=== PATIENT | female | born 1970 | race Hispanic/Latino ===

== ENCOUNTER → 2018-10-03 | Day surgery (SDC) | payer MEDICARE, OTHER ==
[2018-10-02 14:11] LABS: BASOPHILS # (AUTO) 0.1 (0.0-0.1); BASOPHILS % 0.6 % (0.0-1.0); EOSINOPHILS # (AUTO) 0.2 (0.0-0.4); EOSINOPHILS % 1.2 % (0.0-6.0); HEMATOCRIT 37.8 % (34.2-44.1); HEMOGLOBIN 12.2 g/dL (12.0-16.0); LYMPHOCYTES # (AUTO) 3.4 (1.0-3.2); LYMPHOCYTES % 18.6 % (18.0-39.1); MEAN CORPUSCULAR HEMOGLOBIN 31.8 pg (28-32); MEAN CORPUSCULAR HGB CONC 32.3 g/dL (31-35); MEAN CORPUSCULAR VOLUME 98.4 fL (81-99); MONOCYTES # (AUTO) 1.3 (0.2-0.8); MONOCYTES % 6.8 % (4.4-11.3); NEUTROPHILS # (AUTO) 13.4 (2.1-6.9); NEUTROPHILS % 72.3 % (38.7-80.0); PLATELET COUNT 280 x10e3/uL (140-360); RED BLOOD COUNT 3.84 x10e6/uL (3.6-5.1); RED CELL DISTRIBUTION WIDTH 14.7 % (11.7-14.4)
[~2018-10-03] MED LIST: ALENDRONATE SOD70 MG; ASPIRIN81 MG; BUSPIRONE HCL5 MG PO; DEPAKOTE500 MG; FENTANYL CITRATE/PF 100MCG/2 ML INJ ONE; GABAPENTIN100 MG; HYDROXYZINE HCL25 MG PO; LIDOCAINE HCL 2% LOCAL INJ 5 ML SDV VIAL INJ ONE; LORAZEPAM1 MG PO; METOPROLOL SUCC25 MG; MIDAZOLAM HCL 2 MG/2 ML VIAL ONE; PANTOPRAZOLE SO40 MG PO; PROPOFOL IV EMULSION 10 MG/ML 20 ML VIAL ONE; SUCRALFATE1 GM PO
--- OUTSIDE RECORDS SUMMARY | 2018-10-03 06:50 | XMS REPORT | Continuity of Care Document ---
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 Stop date: 04/19/17 7:00:00 CDTNotes: WASTE: F/P - Black; E - [place] Trash Bin No Longer Active 03/20/2017 [facility] Albuterol 0.833 MG/ML / Ipratropium [place] 0.167 MG/ML Inhalant Solution [DuoNeb] 3 ml, Route: NEB, Drug Form: SOLN, Dosing Weight 39.261, kg, RQ2H, for 2 doses, Start date: 03/20/17 15:00:00 CDT, Duration: 2 doses or times, Stop date: 03/20/17 17:00:00 CDTNotes: (Same as: Duoneb) Inactive 03/20/2017 [facility] Levaquin 750 mg, 1 tab, Route: PO, Drug form: TAB, [id number], Dosing Weight 39.261, kg, Start date: 03/20/17 14:00:00 CDT, Duration: 7 day, Stop date: 03/26/17 14:00:00 CDTNotes: Do not give w/antacids, dairy pdt & minerals Take 1 hr before or 2 hr after dairy products Inactive 03/20/2017 [facility] Coreg 3.125 mg, 1 tab, Route: PO, Drug form: TAB, Q12H, Dosing Weight 39.261, kg, Start date: 03/20/17 13:48:00 CDT, Duration: 30 day, Stop date: 04/19/17 9:00:00 CDTNotes: Give with food. (Same As: Coreg) No Longer Active 03/20/2017 [facility] Levaquin 750 mg, Route: PO, Drug form: TAB, [id number], Dosing Weight 39.261, kg, Start date: 03/20/17 13:37:00 CDT, Duration: 30 day, Stop date: 04/18/17 13:37:00 CDT Inactive 03/20/2017 [facility] Acetylcysteine 100 MG/ML Inhalant Solution 200 mg, 2 ml, Route: NEB, Drug Form: SOLN, Dosing Weight 39.261, kg, RQ4H, Start date: 03/20/17 11:00:00 CDT, Duration: 30 day, Stop date: 04/19/17 7:00:00 CDTNotes: WASTE: F/P - Black; E - [employer] Trash Bin Inactive 03/20/2017 [facility] Albuterol 0.833 MG/ML / Ipratropium [place] 0.167 MG/ML Inhalant Solution [DuoNeb] 3 ml, Route: NEB, Drug Form: SOLN, Dosing Weight 39.261, kg, RQ2H, Start date: 03/20/17 9:00:00 CDT, Duration: 30 day, Stop date: 04/19/17 7:00:00 CDTNotes: (Same as: Duoneb) Inactive 03/20/2017 [facility] Miralax 17 gm, 1 pkt, Route: PO, Drug form: PWDR, Daily, Dosing Weight 39.261, kg, Start date: 03/20/17 9:00:00 CDT, Duration: 30 day, Stop date: 04/18/17 9:00:00 CDTNotes: Dissolve in 8 oz of water or juice. (Same as: Miralax) No Longer Active 03/20/2017 [facility] remove patch 1 patch, Route: TOP, Drug form: ERFILM, Q24H, Start date: 03/19/17 18:00:00 CDT, Duration: 30 day, Stop date: 04/17/17 18:00:00 CDTNotes: Remove old patch before application of new patch. WASTE: F/P - P Waste Black; E - P Waste Black No Longer Active 03/19/2017 [facility] Clonidine Hydrochloride 0.1 MG Oral Tablet 0.1 mg, 1 tab, Route: PO, Drug form: TAB, Q8H, Dosing Weight 39.261, kg, Start date: 03/19/17 14:00:00 CDT, Duration: 30 day, Stop date: 04/18/17 8:00:00 CDTNotes: (Same As: Catapres) No Longer Active 03/19/2017 [facility] Albuterol 0.833 MG/ML / Ipratropium [place] 0.167 MG/ML Inhalant Solution [DuoNeb] 3 ml, Route: NEB, Drug Form: SOLN, Dosing Weight 39.261, kg, RQ4H, Start date: 03/19/17 11:00:00 CDT, Duration: 30 day, Stop date: 04/18/17 7:00:00 CDTNotes: (Same as: Duoneb) No Longer Active 03/19/2017 [facility] Albuterol 1 MG/ML Inhalant Solution 2.49 mg, 3 mL, Route: INHALATION, Drug form: SOLN, Q2H, Dosing Weight 39.261, kg, PRN Shortness of breath, Priority: NOW, Start date: 03/19/17 10:36:00 CDT, Duration: 30 day, Stop date: 04/18/17 10:35:00 CDTNotes: SEE RT DOCUMENTATION (Same as: Proventil) No Longer Active 03/19/2017 [facility] Acetaminophen 325 MG / Hydrocodone Bitartrate 10 MG Oral Tablet [[place] 10/325] 1 tab, Route: PO, Drug Form: TAB, Dosing Weight 39.261, kg, Q6H, PRN Pain Score 4-6, Start date: 03/19/17 9:35:00 CDT, Duration: 30 day, Stop date: 04/18/17 9:34:00 CDTNotes: Do not exceed 4gm/day of acetaminophen. (Same as: [place] 325/10) No Longer Active 03/19/2017 [facility] azithromycin 500 mg, 2 tab, Route: PO, Drug form: TAB, Daily, Dosing Weight 39.261, kg, Start date: 03/19/17 9:00:00 CDT, Duration: 2 doses or times, Stop date: 03/20/17 9:00:00 CDTNotes: Take 1 hour before or 2 hours after meals. (Same As: Zithromax) No Longer Active 03/19/2017 [facility] Tessalon Perles 100 mg, 1 cap, Route: PO, Drug form: CAP, TID, Dosing Weight 39.261, kg, Start date: 03/19/17 9:00:00 CDT, Duration: 30 day, Stop date: 04/17/17 17:00:00 CDTNotes: (Same As: Ely Guerrero) "Do Not Crush" No Longer Active 03/19/2017 [facility] pneumococcal capsular polysaccharide type 1 vaccine / pneumococcal capsular polysaccharide type 10A vaccine / pneumococcal capsular polysaccharide type 11A vaccine / pneumococcal capsular polysaccharide type 12F vaccine / pneumococcal capsular polysacchar 0.5 mL, Route: IM, Daily, Start date: 03/19/17 9:00:00 CDT, Duration: 1 doses or times, Stop date: 03/19/17 9:00:00 CDT No Longer Active 03/19/2017 [facility] sodium phosphate + sodium chloride 0.9% INJ 250 mL 15 mmol, 5 mL, Route: IV, ONCE, Start date: 03/19/17 8:00:00 CDT, Stop date: 03/19/17 8:00:00 CDTNotes: (Same as: Na Phosphate, Na PO4) Inactive 03/19/2017 [facility] potassium phosphate 15 mmol, Route: IVPB, ONCE, Dosing Weight 39.261, kg, Priority: NOW, Start date: 03/19/17 7:07:00 CDT, Stop date: 03/19/17 7:07:00 CDT Inactive 03/19/2017 [facility] Calcium Gluconate 2,000 mg, 20 mL, Route: IVPB, ONCE, Dosing Weight 39.261, kg, Start date: 03/19/17 6:37:00 CDT, Stop date: 03/19/17 6:37:00 CDTNotes: WASTE: F/P - Sink; E - [place] Trash Bin Inactive 03/19/2017 [facility] heparin sodium, porcine 2500 UNT/ML Injectable Solution 5,000 unit, 1 mL, Route: SUB-Q, Drug form: INJ, Q12H, Dosing Weight 39.261, kg, Start date: 03/18/17 21:00:00 CDT, Duration: 30 day, Stop date: 04/17/17 9:00:00 CDTNotes: porcine heparin No Longer Active 03/19/2017 [facility] heparin 5,000 unit, 1 mL, Route: SUB-Q, Drug form: INJ, Q12H, Dosing Weight 36.364, kg, Start date: 03/18/17 21:00:00 CDT, Duration: 30 day, Stop date: 04/17/17 9:00:00 CDTNotes: porcine heparin Inactive 03/19/2017 [facility] Seroquel 300 mg, Route: PO, Drug form: TAB, Bedtime, Dosing Weight 39.261, kg, Start date: 03/18/17 21:00:00 CDT, Duration: 30 day, Stop date: 04/16/17 21:00:00 CDT Inactive 03/19/2017 [facility] Divalproex Sodium 500 MG Enteric Coated Tablet [Depakote] 500 mg, 1 tab, Route: PO, Drug form: ECTAB, BID, Dosing Weight 39.261, kg, Start date: 03/18/17 21:00:00 CDT, Duration: 30 day, Stop date: 04/17/17 17:00:00 CDT Inactive 03/19/2017 [facility] Klonopin 0.5 mg, Route: PO, Drug form: TAB, Daily, Dosing Weight 39.261, kg, Start date: 03/18/17 21:00:00 CDT, Duration: 30 day, Stop date: 04/17/17 9:00:00 CDT Inactive 03/19/2017 [facility] SEROquel 100 mg, 1 tab, Route: PO, Drug form: TAB, Bedtime, Start date: 03/18/17 21:00:00 CDT, Duration: 30 day, Stop date: 04/16/17 21:00:00 CDTNotes: (Same as: SEROquel) No Longer Active 03/19/2017 [facility] Acetaminophen 325 MG / Hydrocodone Bitartrate 10 MG Oral Tablet [[place] 10/325] 1 tab, Route: PO, Drug Form: TAB, Dosing Weight 39.261, kg, ONCE, Start date: 03/18/17 17:51:00 CDT, Stop date: 03/18/17 17:51:00 CDTNotes: Do not exceed 4gm/day of acetaminophen. (Same as: [place] 325/10) Inactive 03/18/2017 [facility] Nicotine 7 mg, 1 patch, Route: TOP, Drug form: ERFILM, Q24H, Dosing Weight 39.261, kg, Priority: NOW, Start date: 03/18/17 17:42:00 CDT, Duration: 30 day, Stop date: 04/16/17 18:00:00 CDTNotes: (Same as: Habitro l) "Remove old patch before application of new patch" WASTE: F/P - P Waste Black; E - P Waste Black No Longer Active 03/18/2017 [facility] Symbicort 160/4.5 inhalation aerosol with adapter 2 inhalation, Route: INHALATION, Drug Form: AERO/A, Dosing Weight 39.261, kg, RBID, NOW, Start date: 03/18/17 17:42:00 CDT, Duration: 30 day, Stop date: 04/17/17 8:00:00 CDTNotes: (Same as: Symbicort) WASTE: Aerosol - Return to Pharmacy No Longer Active 03/18/2017 [facility] potassium phosphate + sodium chloride 0.9% INJ 250 mL 15 mmol, 5 mL, Route: IVPB, ONCE, Dosing Weight 39.261, kg, Priority: NOW, Start date: 03/18/17 17:38:00 CDT, Stop date: 03/18/17 17:38:00 CDTNotes: (Same as: K Phosphate.) 1 mMol phoshate has 1.47 mEq potassium Infuse over 4 hours Inactive 03/18/2017 [facility] Sodium Chloride 0.154 MEQ/ML Injectable Solution 1,000 mL, 1,000 ml/hr, Infuse Over: 1 hr, Route: IV, 1,000, Drug form: INJ, ONCE, Priority: STAT, Dosing Weight 39.261 kg, Start date: 03/18/17 17:36:00 CDT, Duration: 1 doses or times, Stop date: 03/18/17 17:36:00 CDT Inactive 03/18/2017 [facility] Docusate Sodium 100 MG Oral Capsule [Colace] 100 mg, 1 cap, Route: PO, Drug form: CAP, BID, Dosing Weight 39.261, kg, Start date: 03/18/17 17:00:00 CDT, Duration: 30 day, Stop date: 04/17/17 9:00:00 CDTNotes: (Same as: Colace) (Do Not Crush) No Longer Active 03/18/2017 [facility] Depakote 250 mg oral enteric coated tablet 250 mg, 2 tab, Route: PO, Drug form: ECTAB, BID, Start date: 03/18/17 17:00:00 CDT, Stop date: 04/17/17 9:00:00 CDTNotes: (Same as: Depakote Delayed Release) Do not confuse with the extended-release tablet. Delayed absorption, entereic coated tablet. Do not crush No Longer Active 03/18/2017 [facility] KlonoPIN 0.5 mg, 1 tab, Route: PO, Drug form: TAB, Q8H, PRN Anxiety, Start date: 03/18/17 15:24:00 CDT, Duration: 30 day, Stop date: 04/17/17 15:23:00 CDTNotes: (Same As: KlonoPIN) No Longer Active 03/18/2017 [facility] Iohexol 100 mL, Route: IVP, Drug Form: SOLN, Dosing Weight 39.261, kg, ONCALL, STAT, Start date: 03/18/17 15:21:00 CDT, Duration: 1 doses or times, Dose=2.2ml/kg, Max [id number] -- "To be infused by Radiology Staff ONLY" Inactive 03/18/2017 [facility] clonazePAM 0.25 mg, 0.5 tab, Route: PO, Drug form: TAB, Q8H, PRN Anxiety, Start date: 03/18/17 15:16:00 CDT, Duration: 30 day, Stop date: 04/17/17 15:15:00 CDTNotes: 0.25 mg=1/2 x 0.5 mg TAB (Same As: KlonoPIN) Inactive 03/18/2017 [facility] levocetirizine 5 mg oral tablet 5 mg=1 tab, PO, QPM, 0 Refill(s) Active 03/18/2017 [facility] Alendronic acid 70 MG Oral Tablet 70 mg=1 tab, PO, qWeek, 0 Refill(s) Active 03/18/2017 [facility] quetiapine 100 MG Oral Tablet [Seroquel] 100 mg=1 tab, PO, Bedtime, 0 Refill(s) Active 03/18/2017 [facility] Tramadol 50 mg, PO, Q8H, PRN Pain, # 20 tab, 0 Refill(s) No Longer Active 03/18/2017 [facility] Clonidine Hydrochloride 0.1 MG Oral Tablet 0.1 mg=1 tab, PO, TID, 0 Refill(s) Active 03/18/2017 [facility] 24 HR Divalproex Sodium 250 MG Extended Release Tablet 250 mg=1 tab, PO, BID, 0 Refill(s) Active 03/18/2017 [facility] clonazePAM 0.5 mg oral tablet 0.5 mg=1 tab, PO, Q8H, 0 Refill(s) Active 03/18/2017 [facility] Prednisone 40 mg, 2 tab, Route: PO, Drug form: TAB, Daily, Dosing Weight 39.261, kg, Start date: 03/18/17 13:44:00 CDT, Duration: 30 day, Stop date: 04/17/17 9:00:00 CDTNotes: Take with food. No Longer Active 03/18/2017 [facility] Sodium Chloride 0.154 MEQ/ML Injectable Solution 1,000 mL, 1,000 ml/hr, Infuse Over: 1 hr, Route: IV, 1,000, Drug form: INJ, ONCE, Priority: STAT, Dosing Weight 39.261 kg, Start date: 03/18/17 13:34:00 CDT, Duration: 1 doses or times, Stop date: 03/18/17 13:34:00 CDT Inactive 03/18/2017 [facility] Tramadol 50 mg, 1 tab, Route: PO, Drug form: TAB, Q6H, Dosing Weight 39.261, kg, PRN Pain Score 4-6, Start date: 03/18/17 13:33:00 CDT, Duration: 30 day, Stop date: 04/17/17 13:32:00 CDTNotes: Not to exceed 4 00mg/day. (Same As: Ultram) No Longer Active 03/18/2017 [facility] Acetaminophen 325 MG / Hydrocodone Bitartrate 5 MG Oral Tablet [[place] 5/325] 1 tab, Route: PO, Dosing Weight 36.364, kg, Q6H, Start date: 03/18/17 12:00:00 CDT, Duration: 30 day, Stop date: 04/17/17 6:00:00 CDT Inactive 03/18/2017 [facility] Albuterol 0.833 MG/ML / Ipratropium [place] 0.167 MG/ML Inhalant Solution [DuoNeb] 3 ml, Route: NEB, Drug Form: SOLN, Dosing Weight 39.261, kg, RQ6H, Start date: 03/18/17 11:57:00 CDT, Duration: 30 day, Stop date: 04/17/17 14:00:00 CDTNotes: (Same as: Duoneb) No Longer Active 03/18/2017 [facility] Clonidine Hydrochloride 0.1 MG Oral Tablet 0.1 mg, Route: PO, Drug form: TAB, ONCE, Dosing Weight 39.261, kg, Start date: 03/18/17 11:55:00 CDT, Stop date: 03/18/17 11:55:00 CDT Inactive 03/18/2017 [facility] Clonidine Hydrochloride 0.3 MG Oral Tablet 0.3 mg, 1 tab, Route: PO, Drug form: TAB, Daily, Dosing Weight 39.261, kg, Start date: 03/18/17 11:54:00 CDT, Duration: 30 day, Stop date: 04/17/17 9:00:00 CDT Inactive 03/18/2017 [facility] potassium chloride 20 mEq oral tablet, extended release 40 mEq, 2 tab, Route: PO, Drug form: ERTAB, ONCE, Dosing Weight 39.261, kg, Start date: 03/18/17 11:51:00 CDT, Stop date: 03/18/17 11:51:00 CDTNotes: (Same as: K-Dur 20) "Do Not Crush" With food and full glass of water Inactive 03/18/2017 [facility] Sodium Chloride 0.154 MEQ/ML Injectable Solution 1,000 mL, 1,000 ml/hr, Infuse Over: 1 hr, Route: IV, 1,000, Drug form: INJ, ONCE, Priority: STAT, Dosing Weight 39.261 kg, Start date: 03/18/17 11:44:00 CDT, Duration: 1 doses or times, Stop date: 03/18/17 11:44:00 CDT Inactive 03/18/2017 [facility] Lactated Ringers 1,000 mL 1,000 mL, Rate: 100 ml/hr, Infuse over: 10 hr, Route: IV, Dosing Weight 39.261 kg, Total Volume: 1,000, Start date: 03/18/17 11:43:00 CDT, Duration: 30 day, Stop date: 04/17/17 11:42:00 CDT No Longer Active 03/18/2017 [facility] Divalproex Sodium 500 MG Enteric Coated Tablet [Depakote] 500 mg=1 tab, PO, BID, 0 Refill(s) Inactive 03/18/2017 [facility] Albuterol 1 MG/ML Inhalant Solution 2.5 mg, INHALATION, Q6H, PRN wheezing, 0 Refill(s) Active 03/18/2017 [facility] 120 ACTUAT Albuterol 0.1 MG/ACTUAT / Ipratropium [place] 0.02 MG/ACTUAT Metered Dose Inhaler [Combivent 20/100] 1 puff, INHALATION, TID, 0 Refill(s) Active 03/18/2017 [facility] Acetaminophen 325 MG / Hydrocodone Bitartrate 7.5 MG Oral Tablet [[place] 7.5/325] 1 tab, PO, BID, 0 Refill(s) No Longer Active 03/18/2017 [facility] Clonazepam 0.5 MG Oral Tablet [Klonopin] 0.5 mg=1 tab, PO, Daily, 0 Refill(s) Inactive 03/18/2017 [facility] quetiapine 300 MG Oral Tablet [Seroquel] 300 mg=1 tab, PO, Bedtime, 0 Refill(s) Inactive 03/18/2017 [facility] Clonidine Hydrochloride 0.3 MG Oral Tablet 0.3 mg=1 tab, PO, Daily, # 60 tab, 1 Refill(s) Inactive 03/18/2017 [facility] Acetaminophen 325 MG / Hydrocodone Bitartrate 7.5 MG Oral Tablet [[place] 7.5/325] 1 tab, Route: PO, Drug Form: TAB, Dosing Weight 36.364, kg, ONCE, STAT, Start date: 03/18/17 9:34:00 CDT, Stop date: 03/18/17 9:34:00 CDTNotes: Same as [place] 325-7.5mg Do not exceed 4gm/day of acetaminophen. Inactive 03/18/2017 [facility] Albuterol 0.83 MG/ML Inhalant Solution 2.49 mg, 3 mL, Route: NEB, Drug form: SOLN, ONCE, Dosing Weight 36.364, kg, Priority: STAT, Start date: 03/18/17 9:03:00 CDT, Stop date: 03/18/17 9:03:00 CDTNotes: SEE RT DOCUMENTATION (Same as: Proventil) Inactive 03/18/2017 [facility] azithromycin 500 mg oral tablet 1,000 mg, Route: PO, Drug form: TAB, ONCE, Dosing Weight 36.364, kg, Start date: 03/18/17 9:02:00 CDT, Stop date: 03/18/17 9:02:00 CDT Inactive 03/18/2017 [facility] Albuterol 0.833 MG/ML / Ipratropium [place] 0.167 MG/ML Inhalant Solution [DuoNeb] 3 ml, Route: NEB, Drug Form: SOLN, Dosing Weight 36.364, kg, PRN, PRN Respiratory Protocol, Start date: 03/18/17 7:36:00 CDT, Duration: 30 day, Stop date: 04/17/17 7:35:00 CDT Inactive 03/18/2017 [facility] Allergies, Adverse Reactions, Alerts Substance Category Reaction Severity Reaction type Status Date Reported Comments Source Immunizations Immunization Date Given Site Status Last Updated Comments Source pneumococcal 23-valent vaccine 10/14/2017 Right deltoid completed [facility] influenza virus vaccine, inactivated 10/14/2017 Left deltoid completed [facility] tetanus-diphtheria toxoids 06/22/2013 Right Deltoid completed [facility] Results Order Name Results Value Reference Range Date Interpretation Comments Source CHEM PANEL eGFR 103 mL/min/1.73m2 12/07/2017 Result Comment: The eGFR is calculated using the CKD-EPI formula. In most young, healthy individuals the eGFR will be >90 mL/min/1.73m2. The eGFR declines with age. An eGFR of 60-89 may be normal in some populations, particularly the elderly, for whom the CKD-EPI formula has not been extensively validated. Use of the eGFR is not recommended in the following populations: Individuals with unstable creatinine concentrations, including patients and those with serious co-morbid conditions. Patients with extremes in muscle mass or diet. The data above are obtained from the National Kidney Disease Education Program (NKDEP) which additionally recommends that when the eGFR is used in patients with extremes of body mass index for purposes of drug dosing, the eGFR should be multiplied by the estimated BMI. [facility] CHEM PANEL Glucose Lvl 95 mg/dL 70 - 99 12/07/2017 [facility] CHEM PANEL BUN 7 mg/dL 7 - 22 12/07/2017 [facility] CHEM PANEL Sodium Lvl 145 meq/L 135 - 145 12/07/2017 [facility] CHEM PANEL Creatinine Lvl 0.69 mg/dL 0.50 - 1.40 12/07/2017 [facility] CHEM PANEL Potassium Lvl 4.4 meq/L 3.5 - 5.1 12/07/2017 [facility] CHEM PANEL CO2 24 meq/L 24 - 32 12/07/2017 [facility] CHEM PANEL Chloride Lvl 111 meq/L 95 - 109 12/07/2017 [facility] CHEM PANEL Calcium Lvl 8.6 mg/dL 8.5 - 10.5 12/07/2017 [facility] CHEM PANEL AGAP 14.4 meq/L 10.0 - 20.0 12/07/2017 [facility] HEMATOLOGY Basophils # 0.1 K/CMM 0.0 - 0.2 12/07/2017 [facility] HEMATOLOGY Eosinophils # 0.1 K/CMM 0.0 - 0.5 12/07/2017 [facility] HEMATOLOGY Monocytes # 0.7 K/CMM 0.0 - 0.8 12/07/2017 [facility] HEMATOLOGY Lymphocytes # 1.9 K/CMM 1.0 - 5.5 12/07/2017 [facility] HEMATOLOGY Segs-Bands # 6.6 K/CMM 1.5 - 8.1 12/07/2017 [facility] HEMATOLOGY Segs 70.4 % 45.0 - 75.0 12/07/2017 [facility] HEMATOLOGY Basophils 0.8 % 0.0 - 1.0 12/07/2017 [facility] HEMATOLOGY Monocytes 7.1 % 2.0 - 12.0 12/07/2017 [facility] HEMATOLOGY Eosinophils 1.6 % 0.0 - 4.0 12/07/2017 [facility] Lymphocytes 20.1 % 20.0 - 40.0 12/07/2017 [facility] RDW 16.8 % 11.5 - 14.5 12/07/2017 [facility] Platelet 277 K/CMM 133 - 450 12/07/2017 [facility] MPV 8.6 fL 7.4 - 10.4 12/07/2017 [facility] MCH 30.9 pg 27.0 - 31.0 12/07/2017 [facility] MCV 94.3 fL 80.0 - 98.0 12/07/2017 [facility] MCHC 32.7 g/dL 32.0 - 36.0 12/07/2017 [facility] Hct 26.8 % 36.0 - 48.0 12/07/2017 [facility] Hgb 8.8 g/dL 12.0 - 16.0 12/07/2017 [facility] RBC 2.85 M/CMM 4.20 - 5.40 12/07/2017 [facility] WBC 9.3 K/CMM 3.7 - 10.4 12/07/2017 [facility] CHEM PANEL eGFR 113 mL/min/1.73m2 12/05/2017 Result Comment: The eGFR is calculated using the CKD-EPI formula. In most young, healthy individuals the eGFR will be >90 mL/min/1.73m2. The eGFR declines with age. An eGFR of 60-89 may be normal in some populations, particularly the elderly, for whom the CKD-EPI formula has not been extensively validated. Use of the eGFR is not recommended in the following populations: Individuals with unstable creatinine concentrations, including patients and those with serious co-morbid conditions. Patients with extremes in muscle mass or diet. The data above are obtained from the National Kidney Disease Education Program (NKDEP) which additionally recommends that when the eGFR is used in patients with extremes of body mass index for purposes of drug dosing, the eGFR should be multiplied by the estimated BMI. [facility] CHEM PANEL Chloride Lvl 105 meq/L 95 - 109 12/05/2017 [facility] CHEM PANEL Potassium Lvl 3.8 meq/L 3.5 - 5.1 12/05/2017 [facility] CHEM PANEL CO2 28 meq/L 24 - 32 12/05/2017 [facility] CHEM PANEL Calcium Lvl 7.8 mg/dL 8.5 - 10.5 12/05/2017 [facility] CHEM PANEL Sodium Lvl 142 meq/L 135 - 145 12/05/2017 [facility] CHEM PANEL Glucose Lvl 88 mg/dL 70 - 99 12/05/2017 [facility] CHEM PANEL BUN 8 mg/dL 7 - 22 12/05/2017 [facility] CHEM PANEL Creatinine Lvl 0.53 mg/dL 0.50 - 1.40 12/05/2017 [facility] CHEM PANEL AGAP 12.8 meq/L 10.0 - 20.0 12/05/2017 [facility] HEMATOLOGY MPV 8.5 fL 7.4 - 10.4 12/05/2017 [facility] HEMATOLOGY RDW 16.6 % 11.5 - 14.5 12/05/2017 [facility] HEMATOLOGY Platelet 249 K/CMM 133 - 450 12/05/2017 [facility] MCHC 32.1 g/dL 32.0 - 36.0 12/05/2017 [facility] HEMATOLOGY MCV 93.4 fL 80.0 - 98.0 12/05/2017 [facility] HEMATOLOGY WBC 13.2 K/CMM 3.7 - 10.4 12/05/2017 [facility] HEMATOLOGY Hgb 8.7 g/dL 12.0 - 16.0 12/05/2017 [facility] Hct 27.0 % 36.0 - 48.0 12/05/2017 [facility] MCH 30.0 pg 27.0 - 31.0 12/05/2017 [facility] RBC 2.89 M/CMM 4.20 - 5.40 12/05/2017 [facility] HEMATOLOGY Eosinophils 1.9 % 0.0 - 4.0 12/05/2017 [facility] HEMATOLOGY Lymphocytes # 2.2 K/CMM 1.0 - 5.5 12/05/2017 [facility] HEMATOLOGY Monocytes # 1.0 K/CMM 0.0 - 0.8 12/05/2017 [facility] HEMATOLOGY Eosinophils # 0.3 K/CMM 0.0 - 0.5 12/05/2017 [facility] HEMATOLOGY Basophils # 0.1 K/CMM 0.0 - 0.2 12/05/2017 [facility] HEMATOLOGY Segs-Bands # 9.8 K/CMM 1.5 - 8.1 12/05/2017 [facility] HEMATOLOGY Segs 73.8 % 45.0 - 75.0 12/05/2017 [facility] HEMATOLOGY Monocytes 7.3 % 2.0 - 12.0 12/05/2017 [facility] HEMATOLOGY Basophils 0.6 % 0.0 - 1.0 12/05/2017 [facility] HEMATOLOGY Lymphocytes 16.4 % 20.0 - 40.0 12/05/2017 [facility] BACTERIAL - SEROLOGY Strep pneumoniae Ag Negative (12/04/17 11:45 PM) Negative 12/05/2017 [facility] BACTERIAL - SEROLOGY Source Strep Urine *NA* (12/04/17 11:45 PM) 12/05/2017 [facility] MOLECULAR DIAGNOSTIC Adenovirus PCR Negative (12/04/17 11:45 PM) Negative 12/05/2017 [facility] MOLECULAR DIAGNOSTIC Source Adenovirus PCR [employer] EXPER[employer]ENT[employer] Swab (12/04/17 11:45 PM) 12/05/2017 [facility] DIAGNOSTIC Parainfluenza 3 PCR Negative (12/04/17 11:45 PM) Negative 12/05/2017 [facility] Source Parainfluenza Virus PCR [employer] EXPERIM[employer] Swab (12/04/17 11:45 PM) 12/05/2017 [facility] DIAGNOSTIC Parainfluenza 2 PCR Negative (12/04/17 11:45 PM) Negative 12/05/2017 [facility] DIAGNOSTIC Parainfluenza 1 PCR Negative (12/04/17 11:45 PM) Negative 12/05/2017 [facility] DIAGNOSTIC RSV PCR Negative (12/04/17 11:45 PM) Negative 12/05/2017 [facility] DIAGNOSTIC Influenza A PCR Negative (12/04/17 11:45 PM) Negative 12/05/2017 [facility] Source Respiratory Panel PCR [employer] Swab (12/04/17 11:45 PM) 12/05/2017 [facility] Influenza B PCR Negative (12/04/17 11:45 PM) Negative 12/05/2017 [facility] URINE AND STOOL UA Urobilinogen <=1.0 mg/dL 0.1 - 1.0 12/04/2017 [facility] URINE AND STOOL UA pH 6.0 5.0 - 8.0 12/04/2017 [facility] URINE AND STOOL UA Spec Grav 1.017 <=1.030 12/04/2017 [facility] URINE AND STOOL UA Protein 30 mg/dL Negative mg/dL 12/04/2017 [facility] URINE AND STOOL UA Bili Negative *NA* (12/04/17 2:14 PM) Negative 12/04/2017 [facility] URINE AND STOOL UA Ketones Negative mg/dL Negative mg/dL 12/04/2017 [facility] URINE AND STOOL UA Glucose Negative mg/dL Negative mg/dL 12/04/2017 [facility] URINE AND STOOL UA WBC 8 /HPF 0 - 5 12/04/2017 [facility] URINE AND STOOL UA Sq Epi Many /LPF Few /LPF 12/04/2017 [facility] URINE AND STOOL UA RBC 10 /HPF 0 - 2 12/04/2017 [facility] URINE AND STOOL UA Blood Negative (12/04/17 2:14 PM) Negative 12/04/2017 [facility] URINE AND STOOL UA Leuk Est Small *ABN* (12/04/17 2:14 PM) Negative 12/04/2017 [facility] URINE AND STOOL UA Nitrite Negative (12/04/17 2:14 PM) Negative 12/04/2017 [facility] URINE AND STOOL UA Trans Epi 12 /LPF <=0 /LPF 12/04/2017 [facility] URINE AND STOOL UA Bacteria Occasional /HPF None Seen /HPF 12/04/2017 [facility] URINE AND STOOL UA Hyal Cast 3 /LPF 0 - 2 12/04/2017 [facility] URINE AND STOOL UA Color Yellow *NA* (12/04/17 2:14 PM) Yellow 12/04/2017 [facility] URINE AND STOOL UA Turbidity Marked *ABN* (12/04/17 2:14 PM) Clear 12/04/2017 [facility] VIRAL - SEROLOGY Influ B Negative (12/04/17 2:14 PM) Negative 12/04/2017 [facility] VIRAL - SEROLOGY Influ A Negative (12/04/17 2:14 PM) Negative 12/04/2017 [facility] CARDIAC ENZYMES Troponin-I null 0.00 - 0.40 12/04/2017 [facility] CARDIAC ENZYMES Total CK 32 unit/L 12 - 191 12/04/2017 [facility] CHEM PANEL Lactic Acid Lvl 1.7 mMol/L 0.5 - 2.2 12/04/2017 [facility] CHEM PANEL eGFR 108 mL/min/1.73m2 12/04/2017 Result Comment: The eGFR is calculated using the CKD-EPI formula. In most young, healthy individuals the eGFR will be >90 mL/min/1.73m2. The eGFR declines with age. An eGFR of 60-89 may be normal in some populations, particularly the elderly, for whom the CKD-EPI formula has not been extensively validated. Use of the eGFR is not recommended in the following populations: Individuals with unstable creatinine concentrations, including patients and those with serious co-morbid conditions. Patients with extremes in muscle mass or diet. The data above are obtained from the National Kidney Disease Education Program (NKDEP) which additionally recommends that when the eGFR is used in patients with extremes of body mass index for purposes of drug dosing, the eGFR should be multiplied by the estimated BMI. [facility] CHEM PANEL Bili Total 0.4 mg/dL 0.2 - 1.3 12/04/2017 [facility] CHEM PANEL Alk Phos 182 unit/L 39 - 136 12/04/2017 [facility] CHEM PANEL AST 7 unit/L 0 - 37 12/04/2017 [facility] CHEM PANEL ALT 20 unit/L 0 - 65 12/04/2017 [facility] CHEM PANEL Total Protein 7.8 g/dL 6.4 - 8.4 12/04/2017 [facility] CHEM PANEL Chloride Lvl 101 meq/L 95 - 109 12/04/2017 [facility] CHEM PANEL CO2 25 meq/L 24 - 32 12/04/2017 [facility] CHEM PANEL Calcium Lvl 8.6 mg/dL 8.5 - 10.5 12/04/2017 [facility] CHEM PANEL Albumin Lvl 2.9 g/dL 3.5 - 5.0 12/04/2017 [facility] CHEM PANEL Creatinine Lvl 0.61 mg/dL 0.50 - 1.40 12/04/2017 [facility] CHEM PANEL Glucose Lvl 104 mg/dL 70 - 99 12/04/2017 [facility] CHEM PANEL BUN 8 mg/dL 7 - 22 12/04/2017 [facility] CHEM PANEL Sodium Lvl 136 meq/L 135 - 145 12/04/2017 [facility] CHEM PANEL Potassium Lvl 3.6 meq/L 3.5 - 5.1 12/04/2017 [facility] CHEM PANEL AGAP 13.6 meq/L 10.0 - 20.0 12/04/2017 [facility] CHEM PANEL Globulin 4.9 g/dL 2.7 - 4.2 12/04/2017 [facility] CHEM PANEL A/G Ratio 0.6 0.7 - 1.6 12/04/2017 [facility] CHEM PANEL B/C Ratio 13 6 - 25 12/04/2017 [facility] CHEM PANEL Procalcitonin Lvl 16.37 ng/mL 0.00 - 0.10 12/04/2017 Result Comment: Critical Result(s) called to Jeremiah Robison 12/04/2017 16:33 by genesis. Read back OK. Notified Shannon Robison at 12/04/2017 16:33,genesis that this is a corrected report. [facility] ENDOCRINOLOGY S Preg Negative *NA* (12/04/17 2:08 PM) Negative 12/04/2017 [facility] HEMATOLOGY Monocytes # 1.5 K/CMM 0.0 - 0.8 12/04/2017 [facility] HEMATOLOGY Basophils # 0.1 K/CMM 0.0 - 0.2 12/04/2017 [facility] HEMATOLOGY Segs-Bands # 25.1 K/CMM 1.5 - 8.1 12/04/2017 [facility] HEMATOLOGY Lymphocytes # 1.2 K/CMM 1.0 - 5.5 12/04/2017 [facility] HEMATOLOGY Eosinophils 0.1 % 0.0 - 4.0 12/04/2017 [facility] HEMATOLOGY Basophils 0.4 % 0.0 - 1.0 12/04/2017 [facility] RBC Morph Normal (12/04/17 2:08 PM) 12/04/2017 [facility] Segs 90.0 % 45.0 - 75.0 12/04/2017 [facility] Plt Morph Normal (12/04/17 2:08 PM) 12/04/2017 [facility] Lymphocytes 4.2 % 20.0 - 40.0 12/04/2017 [facility] Monocytes 5.3 % 2.0 - 12.0 12/04/2017 [facility] INR 0.98 0.85 - 1.17 12/04/2017 [facility] PT 13.0 s 12.0 - 14.7 12/04/2017 [facility] MPV 8.4 fL 7.4 - 10.4 12/04/2017 [facility] RDW 16.7 % 11.5 - 14.5 12/04/2017 [facility] Platelet 359 K/CMM 133 - 450 12/04/2017 [facility] MCH 30.3 pg 27.0 - 31.0 12/04/2017 [facility] MCHC 32.2 g/dL 32.0 - 36.0 12/04/2017 [facility] Hct 30.5 % 36.0 - 48.0 12/04/2017 [facility] MCV 94.0 fL 80.0 - 98.0 12/04/2017 [facility] RBC 3.25 M/CMM 4.20 - 5.40 12/04/2017 [facility] WBC 27.9 K/CMM 3.7 - 10.4 12/04/2017 [facility] Hgb 9.8 g/dL 12.0 - 16.0 12/04/2017 [facility] PTT 33.6 s 22.9 - 35.8 12/04/2017 [facility] Chest 1view DX Chest 1view DX Clinical Indication: - Undifferentiated Sepsis; Comparison: 10/15/2017 FINDINGS: AP chest radiographs shows hyperinflated lung volumes with small bilateral pleural effusions; right greater than left. There is no focal infiltrate or pneumothorax. The heart size and pulmonary vasculature are normal. The trachea is midline. There are no clinically significant osseous abnormalities noted. IMPRESSION: 1. Small bilateral pleural effusion with the right being greater than the left. There is no focal infiltrate. 2. Stable hyperinflated lung duran . SL: [id number] 12/04/2017 - - Read by: Eladio Chung MD Dictated Date/time: 12/04/17 14:20 Electronically Signed by: Eladio Chung MD 12/04/17 14:21 FINAL REPORT [facility] MCH 32.8 pg 27.0 - 31.0 10/15/2017 [facility] MCHC 33.8 g/dL 32.0 - 36.0 10/15/2017 [facility] Platelet 254 K/CMM 133 - 450 10/15/2017 [facility] MPV 8.8 fL 7.4 - 10.4 10/15/2017 [facility] RDW 15.1 % 11.5 - 14.5 10/15/2017 [facility] MCV 97.1 fL 80.0 - 98.0 10/15/2017 [facility] Hct 32.9 % 36.0 - 48.0 10/15/2017 [facility] RBC 3.38 M/CMM 4.20 - 5.40 10/15/2017 [facility] Hgb 11.1 g/dL 12.0 - 16.0 10/15/2017 [facility] WBC 13.6 K/CMM 3.7 - 10.4 10/15/2017 [facility] Chest 1view DX Chest 1view DX Clinical Indication: - SOB, cough; Comparison: 10/13/2017 FINDINGS: AP chest radiographs shows hyperinflated lung volumes are small bilateral pleural effusions. There is no evidence of any focal infiltrate or pneumothorax. The heart size and pulmonary vasculature are normal. The trachea is midline. There are no clinically significant osseous abnormalities noted. IMPRESSION: 1. Hyperinflated lung duran with small bilateral pleural effusions. There is no evidence of any focal infiltrate. SL: [id number] 10/15/2017 - - Read by: Eladio Chung MD Dictated Date/time: 10/15/17 09:49 Electronically Signed by: Eladio Chung MD 10/15/17 09:50 FINAL REPORT [facility] CHEM PANEL eGFR 107 mL/min/1.73m2 10/14/2017 Result Comment: The eGFR is calculated using the CKD-EPI formula. In most young, healthy individuals the eGFR will be >90 mL/min/1.73m2. The eGFR declines with age. An eGFR of 60-89 may be normal in some populations, particularly the elderly, for whom the CKD-EPI formula has not been extensively validated. Use of the eGFR is not recommended in the following populations: Individuals with unstable creatinine concentrations, including patients and those with serious co-morbid conditions. Patients with extremes in muscle mass or diet. The data above are obtained from the National Kidney Disease Education Program (NKDEP) which additionally recommends that when the eGFR is used in patients with extremes of body mass index for purposes of drug dosing, the eGFR should be multiplied by the estimated BMI. [facility] CHEM PANEL Alk Phos 79 unit/L 39 - 136 10/14/2017 [facility] CHEM PANEL Bili Total 0.3 mg/dL 0.2 - 1.3 10/14/2017 [facility] CHEM PANEL CO2 29 meq/L 24 - 32 10/14/2017 [facility] CHEM PANEL Total Protein 6.7 g/dL 6.4 - 8.4 10/14/2017 [facility] CHEM PANEL Calcium Lvl 7.8 mg/dL 8.5 - 10.5 10/14/2017 [facility] CHEM PANEL Chloride Lvl 99 meq/L 95 - 109 10/14/2017 [facility] CHEM PANEL AST 7 unit/L 0 - 37 10/14/2017 [facility] CHEM PANEL ALT 9 unit/L 0 - 65 10/14/2017 [facility] CHEM PANEL Albumin Lvl 2.8 g/dL 3.5 - 5.0 10/14/2017 [facility] CHEM PANEL Potassium Lvl 4.0 meq/L 3.5 - 5.1 10/14/2017 [facility] CHEM PANEL Sodium Lvl 137 meq/L 135 - 145 10/14/2017 [facility] CHEM PANEL Glucose Lvl 79 mg/dL 70 - 99 10/14/2017 [facility] CHEM PANEL Creatinine Lvl 0.61 mg/dL 0.50 - 1.40 10/14/2017 [facility] CHEM PANEL BUN 11 mg/dL 7 - 22 10/14/2017 [facility] CHEM PANEL Globulin 3.9 g/dL 2.7 - 4.2 10/14/2017 [facility] CHEM PANEL A/G Ratio 0.7 0.7 - 1.6 10/14/2017 [facility] CHEM PANEL B/C Ratio 18 6 - 25 10/14/2017 [facility] CHEM PANEL AGAP 13.0 meq/L 10.0 - 20.0 10/14/2017 [facility] HEMATOLOGY MPV 9.0 fL 7.4 - 10.4 10/14/2017 [facility] MCH 32.5 pg 27.0 - 31.0 10/14/2017 [facility] HEMATOLOGY MCV 96.9 fL 80.0 - 98.0 10/14/2017 [facility] HEMATOLOGY Platelet 321 K/CMM 133 - 450 10/14/2017 [facility] HEMATOLOGY RDW 14.7 % 11.5 - 14.5 10/14/2017 [facility] HEMATOLOGY MCHC 33.6 g/dL 32.0 - 36.0 10/14/2017 [facility] HEMATOLOGY WBC 25.0 K/CMM 3.7 - 10.4 10/14/2017 [facility] HEMATOLOGY Hct 36.1 % 36.0 - 48.0 10/14/2017 [facility] HEMATOLOGY Hgb 12.1 g/dL 12.0 - 16.0 10/14/2017 [facility] HEMATOLOGY RBC 3.72 M/CMM 4.20 - 5.40 10/14/2017 [facility] HEMATOLOGY Eosinophils # 0.1 K/CMM 0.0 - 0.5 10/14/2017 [facility] HEMATOLOGY Basophils # 0.1 K/CMM 0.0 - 0.2 10/14/2017 [facility] HEMATOLOGY Lymphocytes # 1.8 K/CMM 1.0 - 5.5 10/14/2017 [facility] HEMATOLOGY Monocytes # 1.4 K/CMM 0.0 - 0.8 10/14/2017 [facility] HEMATOLOGY Segs-Bands # 21.5 K/CMM 1.5 - 8.1 10/14/2017 [facility] HEMATOLOGY Basophils 0.5 % 0.0 - 1.0 10/14/2017 [facility] HEMATOLOGY Eosinophils 0.3 % 0.0 - 4.0 10/14/2017 [facility] HEMATOLOGY Monocytes 5.8 % 2.0 - 12.0 10/14/2017 [facility] HEMATOLOGY Lymphocytes 7.4 % 20.0 - 40.0 10/14/2017 [facility] HEMATOLOGY Segs 86.0 % 45.0 - 75.0 10/14/2017 [facility] CHEM PANEL Lactic Acid Lvl 1.1 mMol/L 0.5 - 2.2 10/14/2017 [facility] RAPID Grp A Strep Scr Negative (10/13/17 8:14 PM) Negative 10/14/2017 [facility] URINE AND STOOL UA Color Ltyellow 10/14/2017 [facility] URINE AND STOOL UA Urobilinogen <=1.0 mg/dL 0.1 - 1.0 10/14/2017 [facility] URINE AND STOOL UA Renal Epi 11 /LPF <=0 /LPF 10/14/2017 [facility] URINE AND STOOL UA WBC null 0 - 5 10/14/2017 [facility] URINE AND STOOL UA RBC 2 /HPF 0 - 2 10/14/2017 [facility] URINE AND STOOL UA Sq Epi Few /LPF Few /LPF 10/14/2017 [facility] URINE AND STOOL UA Leuk Est Negative (10/13/17 6:20 PM) Negative 10/14/2017 [facility] URINE AND STOOL UA Nitrite Negative (10/13/17 6:20 PM) Negative 10/14/2017 [facility] URINE AND STOOL UA Ketones Negative mg/dL Negative mg/dL 10/14/2017 [facility] URINE AND STOOL UA Glucose Negative mg/dL Negative mg/dL 10/14/2017 [facility] URINE AND STOOL UA Blood Large *ABN* (10/13/17 6:20 PM) Negative 10/14/2017 [facility] URINE AND STOOL UA Bili Negative *NA* (10/13/17 6:20 PM) Negative 10/14/2017 [facility] URINE AND STOOL UA pH 8.0 5.0 - 8.0 10/14/2017 [facility] URINE AND STOOL UA Protein Negative mg/dL Negative mg/dL 10/14/2017 [facility] URINE AND STOOL UA Spec Grav 1.012 <=1.030 10/14/2017 [facility] URINE AND STOOL UA Turbidity Clear (10/13/17 6:20 PM) Clear 10/14/2017 [facility] URINE CHEM U Preg Negative (10/13/17 6:20 PM) Negative 10/14/2017 [facility] CARDIAC ENZYMES CK MB Index 1.6 0.0 - 2.5 10/13/2017 [facility] CARDIAC ENZYMES Total CK 62 unit/L 12 - 191 10/13/2017 [facility] CARDIAC ENZYMES CK MB 1.0 ng/mL 0.5 - 3.6 10/13/2017 [facility] CARDIAC ENZYMES Troponin-I null 0.00 - 0.40 10/13/2017 [facility] CHEM PANEL Amylase Lvl 17 unit/L 25 - 115 10/13/2017 [facility] CHEM PANEL Lipase Lvl 56 unit/L 73 - 393 10/13/2017 [facility] CHEM PANEL eGFR 108 mL/min/1.73m2 10/13/2017 Result Comment: The eGFR is calculated using the CKD-EPI formula. In most young, healthy individuals the eGFR will be >90 mL/min/1.73m2. The eGFR declines with age. An eGFR of 60-89 may be normal in some populations, particularly the elderly, for whom the CKD-EPI formula has not been extensively validated. Use of the eGFR is not recommended in the following populations: Individuals with unstable creatinine concentrations, including patients and those with serious co-morbid conditions. Patients with extremes in muscle mass or diet. The data above are obtained from the National Kidney Disease Education Program (NKDEP) which additionally recommends that when the eGFR is used in patients with extremes of body mass index for purposes of drug dosing, the eGFR should be multiplied by the estimated BMI. [facility] CHEM PANEL A/G Ratio 0.7 0.7 - 1.6 10/13/2017 [facility] CHEM PANEL Potassium Lvl 4.3 meq/L 3.5 - 5.1 10/13/2017 [facility] CHEM PANEL CO2 26 meq/L 24 - 32 10/13/2017 [facility] CHEM PANEL Chloride Lvl 98 meq/L 95 - 109 10/13/2017 [facility] CHEM PANEL Bili Total 0.3 mg/dL 0.2 - 1.3 10/13/2017 [facility] CHEM PANEL AST 10 unit/L 0 - 37 10/13/2017 [facility] CHEM PANEL Alk Phos 87 unit/L 39 - 136 10/13/2017 [facility] CHEM PANEL Globulin 4.3 g/dL 2.7 - 4.2 10/13/2017 [facility] CHEM PANEL AGAP 12.3 meq/L 10.0 - 20.0 10/13/2017 [facility] CHEM PANEL B/C Ratio 15 6 - 25 10/13/2017 [facility] CHEM PANEL ALT 14 unit/L 0 - 65 10/13/2017 [facility] CHEM PANEL Total Protein 7.5 g/dL 6.4 - 8.4 10/13/2017 [facility] CHEM PANEL Albumin Lvl 3.2 g/dL 3.5 - 5.0 10/13/2017 [facility] CHEM PANEL Calcium Lvl 9.1 mg/dL 8.5 - 10.5 10/13/2017 [facility] CHEM PANEL Sodium Lvl 132 meq/L 135 - 145 10/13/2017 [facility] CHEM PANEL BUN 9 mg/dL 7 - 22 10/13/2017 [facility] CHEM PANEL Creatinine Lvl 0.60 mg/dL 0.50 - 1.40 10/13/2017 [facility] CHEM PANEL Glucose Lvl 84 mg/dL 70 - 99 10/13/2017 [facility] HEMATOLOGY Eosinophils # 0.2 K/CMM 0.0 - 0.5 10/13/2017 [facility] HEMATOLOGY Basophils # 0.1 K/CMM 0.0 - 0.2 10/13/2017 [facility] HEMATOLOGY Segs 87.7 % 45.0 - 75.0 10/13/2017 [facility] HEMATOLOGY Monocytes 5.4 % 2.0 - 12.0 10/13/2017 [facility] HEMATOLOGY Lymphocytes 6.1 % 20.0 - 40.0 10/13/2017 [facility] HEMATOLOGY Lymphocytes # 1.7 K/CMM 1.0 - 5.5 10/13/2017 [facility] HEMATOLOGY Monocytes # 1.5 K/CMM 0.0 - 0.8 10/13/2017 [facility] HEMATOLOGY Segs-Bands # 24.5 K/CMM 1.5 - 8.1 10/13/2017 [facility] HEMATOLOGY Basophils 0.2 % 0.0 - 1.0 10/13/2017 [facility] HEMATOLOGY Eosinophils 0.6 % 0.0 - 4.0 10/13/2017 [facility] HEMATOLOGY MCH 31.0 pg 27.0 - 31.0 10/13/2017 [facility] HEMATOLOGY MCHC 32.0 g/dL 32.0 - 36.0 10/13/2017 [facility] HEMATOLOGY Platelet 285 K/CMM 133 - 450 10/13/2017 [facility] RDW 14.8 % 11.5 - 14.5 10/13/2017 [facility] MPV 10.0 fL 7.4 - 10.4 10/13/2017 [facility] WBC 27.9 K/CMM 3.7 - 10.4 10/13/2017 [facility] RBC 4.16 M/CMM 4.20 - 5.40 10/13/2017 [facility] Hct 40.3 % 36.0 - 48.0 10/13/2017 [facility] Hgb 12.9 g/dL 12.0 - 16.0 10/13/2017 [facility] MCV 96.8 fL 80.0 - 98.0 10/13/2017 [facility] Abdomen RUQ US Abdomen RUQ US Patient Name: ISAIAH PHILLIPS : 1970; Age: 47 years y/o Female MR: [id number] Study: Abdomen RUQ US 10/13/2017 9:24 PM [employer] Ordering Physician: Andrade Funes MD Clinical Indication: - ruq abdominal pain. Comparison: None TECHNIQUE: Grayscale and limited color sonographic evaluation of the right upper quadrant abdomen was performed with standard technique. FINDINGS: LIVER: The visualized liver shows normal contour, size, and morphology with normal parenchymal echo texture. BILE DUCTS: The common bile duct measures about 4.0 mm. GALLBLADDER: There are no gallstones, gallbladder sludge, pericholecystic fluid or wall thickening. PANCREAS: The visualized pancreas appears unremarkable. KIDNEY: The right kidney measures 10.4 cm x 4.4 cm x 4.8 cm. IMPRESSION: 1. No definite gallstones. SL: [id number] 10/13/2017 - - Read by: Raffy Brady MD Dictated Date/time: 10/13/17 22:40 Electronically Signed by: Raffy Brady MD 10/13/17 22:41 FINAL REPORT [facility] ED Abdomen/Pelvis IV contrast only CT ED Abdomen/Pelvis IV contrast only CT Clinical Indication: Abdominal pain, nausea/vomiting. Comparison: 03/18/2017 TECHNIQUE: Sequential trans-axial images were obtained with a multi-detector helical CT after administration of iodinated contrast. Coronal and sagittal reconstructions were obtained. 100 mL of Omnipaque contrast material was used for the exam. No oral contrast material was used for the exam. CT Radiation Dose DLP 488 mGy-cm FINDINGS: CHEST BASE: Scattered areas of mild subsegmental/dependent atelectasis. No focal infiltrate. No effusion or pneumothorax. Heart size normal. No pericardial effusion. LIVER: Size within normal limits. Normal contours. Enhancement pattern within normal limits. GALLBLADDER: No radiopaque gallstones. No pericholecystic fluid PANCREAS: Normal enhancement pattern. No surrounding inflammation. SPLEEN: Normal size. No obvious lesions. ADRENAL GLANDS: Normal contour bilaterally. No detected lesions. KIDNEYS/COLLECTING SYSTEMS: Right kidney: Normal size and contour. No abnormal enhancement pattern. Subcentimeter hypodensities, too small to further characterize. No calcified stones. Right ureter: No hydronephrosis or obstructing calcified stone. Distal ureter suboptimally characterized, but no calcifications noted along the expected course of the ureter. Left kidney: Normal size and contour. No abnormal enhancement pattern. Subcentimeter hypodensities, too small to further characterize. No calcified stones. Left ureter: No hydronephrosis or obstructing calcified stone. Distal ureter suboptimally characterized, but no calcifications noted along the expected course of the ureter. Bladder: Decompressed.. BOWEL: Limited assessment without oral contrast. Stomach: Poorly assessed secondary to its decompressed state. Suspected small sliding hiatal hernia.. Small bowel: No obstructive pattern. No suspected inflammation. Appendix: Visualized portions noninflamed. Large bowel: Within normal limits. Moderate amount of stool and gas in the colon. PELVIC ORGANS: Uterus appears normal in size and contour. Ovaries not well characterized. No large volume adnexal or retrouterine fluid. PERITONEUM/RETROPERITONEUM: No organized fluid collection. No free air. No pathologically enlarged lymph nodes are seen in the abdomen, retroperitoneum, or pelvis. Mildly atherosclerotic aorta without areas of anuerysm. MUSCULOSKELETAL: No acute fracture or dislocation. Broad-based disc bulge at L5-S1. No lytic or blastic lesion. Surrounding subcutaneous tissues within normal limits. IMPRESSION: 1. No acute abnormality identified in the abdomen or pelvis. 2. Suspected small sliding hiatal hernia. 3. Moderate burden of stool and gas in the colon. SL: [id number] 10/13/2017 - - Read by: Luis M Lima MD Dictated Date/time: 10/13/17 20:06 Electronically Signed by: Luis M Lima MD 10/13/17 20:12 FINAL REPORT [facility] Chest 1view DX Chest 1view DX Clinical Indication: - cough and SOB. Comparison: 03/18/2017. FINDINGS: AP chest radiograph was obtained. MEDIASTINUM: The cardiac silhouette is normal in size. The aorta is unremarkable. LUNGS: Lung volumes are increased with increased parenchymal lucency. Subsegmental atelectasis versus scarring in the left upper lobe. No pleural effusion or pneumothorax. OTHER: No acute osseous abnormalities. IMPRESSION: No acute cardiopulmonary abnormality identified. Unchanged findings of COPD. SL: [id number] 10/13/2017 - - Read by: Brooks Colin MD Dictated Date/time: 10/13/17 18:04 Electronically Signed by: Brooks Colin MD 10/13/17 18:06 FINAL REPORT [facility] CHEM PANEL Magnesium Lvl 2.4 mg/dL 1.8 - 2.4 03/21/2017 [facility] CHEM PANEL Phosphorus 3.9 mg/dL 2.5 - 4.5 03/21/2017 [facility] ELECTROLYTES AGAP 9.8 meq/L 10.0 - 20.0 03/21/2017 [facility] ELECTROLYTES eGFR 111 mL/min/1.73m2 03/21/2017 Result Comment: The eGFR is calculated using the CKD-EPI formula. In most young, healthy individuals the eGFR will be >90 mL/min/1.73m2. The eGFR declines with age. An eGFR of 60-89 may be normal in some populations, particularly the elderly, for whom the CKD-EPI formula has not been extensively validated. Use of the eGFR is not recommended in the following populations: Individuals with unstable creatinine concentrations, including patients and those with serious co-morbid conditions. Patients with extremes in muscle mass or diet. The data above are obtained from the National Kidney Disease Education Program (NKDEP) which additionally recommends that when the eGFR is used in patients with extremes of body mass index for purposes of drug dosing, the eGFR should be multiplied by the estimated BMI. [facility] ELECTROLYTES Calcium Lvl 8.7 mg/dL 8.5 - 10.5 03/21/2017 [facility] ELECTROLYTES CO2 32 meq/L 24 - 32 03/21/2017 [facility] ELECTROLYTES Chloride Lvl 102 meq/L 95 - 109 03/21/2017 [facility] ELECTROLYTES Potassium Lvl 4.8 meq/L 3.5 - 5.1 03/21/2017 [facility] ELECTROLYTES Creatinine Lvl 0.57 mg/dL 0.50 - 1.40 03/21/2017 [facility] ELECTROLYTES Sodium Lvl 139 meq/L 135 - 145 03/21/2017 [facility] ELECTROLYTES Glucose Lvl 107 mg/dL 70 - 99 03/21/2017 [facility] ELECTROLYTES BUN 12 mg/dL 7 - 22 03/21/2017 [facility] HEMATOLOGY MCV 95.5 fL 80.0 - 98.0 03/21/2017 [facility] HEMATOLOGY MCHC 33.2 g/dL 32.0 - 36.0 03/21/2017 [facility] HEMATOLOGY MCH 31.8 pg 27.0 - 31.0 03/21/2017 [facility] HEMATOLOGY RDW 14.1 % 11.5 - 14.5 03/21/2017 [facility] HEMATOLOGY MPV 9.4 fL 7.4 - 10.4 03/21/2017 [facility] HEMATOLOGY Platelet 297 K/CMM 133 - 450 03/21/2017 [facility] HEMATOLOGY Hgb 12.0 g/dL 12.0 - 16.0 03/21/2017 [facility] HEMATOLOGY Hct 36.0 % 36.0 - 48.0 03/21/2017 [facility] HEMATOLOGY WBC 15.1 K/CMM 3.7 - 10.4 03/21/2017 [facility] HEMATOLOGY RBC 3.77 M/CMM 4.20 - 5.40 03/21/2017 [facility] HEMATOLOGY Lymphocytes 12.5 % 20.0 - 40.0 03/21/2017 [facility] HEMATOLOGY Monocytes 4.6 % 2.0 - 12.0 03/21/2017 [facility] HEMATOLOGY Basophils 0.1 % 0.0 - 1.0 03/21/2017 [facility] HEMATOLOGY Segs-Bands # 12.5 K/CMM 1.5 - 8.1 03/21/2017 [facility] HEMATOLOGY Lymphocytes # 1.9 K/CMM 1.0 - 5.5 03/21/2017 [facility] HEMATOLOGY Monocytes # 0.7 K/CMM 0.0 - 0.8 03/21/2017 [facility] HEMATOLOGY Segs 82.8 % 45.0 - 75.0 03/21/2017 [facility] PARATHYROID PROFILE Ca Norm WB 1.10 mMol/L 1.05 - 1.25 03/21/2017 [facility] PARATHYROID PROFILE Ca Ion WB 1.08 mMol/L 1.05 - 1.25 03/21/2017 [facility] IMMUNOLOGY HIV Ag/Ab 4th Gen Negative *NA* (03/20/17 12:00 PM) Negative 03/20/2017 [facility] Barium swallow DX Barium swallow DX EXAM: FLUOROSCOPY BARIUM ESOPHAGRAM DOUBLE CONTRAST DATE: 03/20/2017 7:00 AM CDT INDICATION: Anorexia - ESOPHOGRAM ADDITIONAL INFORMATION: None. COMPARISON: CT chest 03/18/2017 TECHNIQUE: Barium esophagram was performed using double contrast technique. FLUOROSCOPY TIME: 22 seconds Skin dose: 30.40 mGy DISCUSSION: Preliminary radiograph: The lungs are clear. Hyperinflation bilateral lungs with flattening of the diaphragm is noted. Esophagus: Motility: Normal. Anatomy: No filling defects, mucosal irregularities, obstructions or extrinsic compressions identified. Hiatal hernia: No significant hiatal hernia. Gastroesophageal reflux: None. IMPRESSION: 1. Unremarkable esophagram. 03/20/2017 - - This report was dictated by a Case Manager/Fellow. I have personally reviewed the images as well as the Resident's interpretation and agree with the findings. Read by: Melecio Haile MD Resident: Melecio Haile MD Dictated Date/time: 03/20/17 11:40 Electronically Signed by: Sam Schmitz MD 03/20/17 13:29 FINAL REPORT [facility] BLOOD BANK RESULTS ABO/Rh AB POS 03/20/2017 [facility] BLOOD BANK RESULTS Antibody Scrn Negative (03/20/17 4:37 AM) 03/20/2017 [facility] CHEM PANEL Procalcitonin Lvl 0.09 ng/mL 0.00 - 0.10 03/20/2017 [facility] CHEM PANEL eGFR 106 mL/min/1.73m2 03/20/2017 Result Comment: The eGFR is calculated using the CKD-EPI formula. In most young, healthy individuals the eGFR will be >90 mL/min/1.73m2. The eGFR declines with age. An eGFR of 60-89 may be normal in some populations, particularly the elderly, for whom the CKD-EPI formula has not been extensively validated. Use of the eGFR is not recommended in the following populations: Individuals with unstable creatinine concentrations, including patients and those with serious co-morbid conditions. Patients with extremes in muscle mass or diet. The data above are obtained from the National Kidney Disease Education Program (NKDEP) which additionally recommends that when the eGFR is used in patients with extremes of body mass index for purposes of drug dosing, the eGFR should be multiplied by the estimated BMI. [facility] CHEM PANEL Calcium Lvl 8.4 mg/dL 8.5 - 10.5 03/20/2017 [facility] CHEM PANEL CO2 31 meq/L 24 - 32 03/20/2017 [facility] CHEM PANEL AGAP 9.5 meq/L 10.0 - 20.0 03/20/2017 [facility] CHEM PANEL Potassium Lvl 4.5 meq/L 3.5 - 5.1 03/20/2017 [facility] CHEM PANEL Sodium Lvl 141 meq/L 135 - 145 03/20/2017 [facility] CHEM PANEL Creatinine Lvl 0.53 mg/dL 0.50 - 1.40 03/20/2017 [facility] CHEM PANEL BUN 6 mg/dL 7 - 22 03/20/2017 [facility] CHEM PANEL Chloride Lvl 105 meq/L 95 - 109 03/20/2017 [facility] CHEM PANEL Glucose Lvl 112 mg/dL 70 - 99 03/20/2017 [facility] CHEM PANEL Phosphorus 2.9 mg/dL 2.5 - 4.5 03/20/2017 [facility] CHEM PANEL Magnesium Lvl 2.1 mg/dL 1.8 - 2.4 03/20/2017 [facility] HEMATOLOGY Hct 32.5 % 36.0 - 48.0 03/20/2017 [facility] HEMATOLOGY Hgb 10.6 g/dL 12.0 - 16.0 03/20/2017 [facility] HEMATOLOGY RBC 3.40 M/CMM 4.20 - 5.40 03/20/2017 [facility] HEMATOLOGY WBC 15.3 K/CMM 3.7 - 10.4 03/20/2017 [facility] HEMATOLOGY MCV 95.8 fL 80.0 - 98.0 03/20/2017 [facility] HEMATOLOGY MCH 31.3 pg 27.0 - 31.0 03/20/2017 [facility] HEMATOLOGY MPV 9.4 fL 7.4 - 10.4 03/20/2017 [facility] HEMATOLOGY MCHC 32.7 g/dL 32.0 - 36.0 03/20/2017 [facility] HEMATOLOGY RDW 14.0 % 11.5 - 14.5 03/20/2017 [facility] HEMATOLOGY Platelet 263 K/CMM 133 - 450 03/20/2017 [facility] HEMATOLOGY Segs-Bands # 12.5 K/CMM 1.5 - 8.1 03/20/2017 [facility] HEMATOLOGY Monocytes # 0.8 K/CMM 0.0 - 0.8 03/20/2017 [facility] HEMATOLOGY Lymphocytes # 1.9 K/CMM 1.0 - 5.5 03/20/2017 [facility] HEMATOLOGY Eosinophils 0.1 % 0.0 - 4.0 03/20/2017 [facility] HEMATOLOGY Monocytes 5.3 % 2.0 - 12.0 03/20/2017 [facility] HEMATOLOGY Basophils 0.1 % 0.0 - 1.0 03/20/2017 [facility] HEMATOLOGY Plt Morph Normal (03/20/17 4:37 AM) 03/20/2017 [facility] HEMATOLOGY RBC Morph Normal (03/20/17 4:37 AM) 03/20/2017 [facility] HEMATOLOGY Lymphocytes 12.6 % 20.0 - 40.0 03/20/2017 [facility] HEMATOLOGY Segs 81.9 % 45.0 - 75.0 03/20/2017 [facility] PARATHYROID PROFILE Ca Ion WB 1.13 mMol/L 1.05 - 1.25 03/20/2017 [facility] PARATHYROID PROFILE Ca Norm WB 1.10 mMol/L 1.05 - 1.25 03/20/2017 [facility] MOLECULAR DIAGNOSTIC HCV RNA Log10 null 03/19/2017 [facility] MOLECULAR DIAGNOSTIC HCV RNA VirLoad Not Detected (03/19/17 7:58 AM) 03/19/2017 [facility] CHEM PANEL Lactic Acid Lvl 1.2 mMol/L 0.5 - 2.2 03/19/2017 [facility] CHEM PANEL Phosphorus 2.2 mg/dL 2.5 - 4.5 03/19/2017 [facility] CHEM PANEL Magnesium Lvl 2.0 mg/dL 1.8 - 2.4 03/19/2017 [facility] CHEM PANEL Glucose Lvl 126 mg/dL 70 - 99 03/19/2017 [facility] CHEM PANEL BUN 6 mg/dL 7 - 22 03/19/2017 [facility] CHEM PANEL eGFR 113 mL/min/1.73m2 03/19/2017 Result Comment: The eGFR is calculated using the CKD-EPI formula. In most young, healthy individuals the eGFR will be >90 mL/min/1.73m2. The eGFR declines with age. An eGFR of 60-89 may be normal in some populations, particularly the elderly, for whom the CKD-EPI formula has not been extensively validated. Use of the eGFR is not recommended in the following populations: Individuals with unstable creatinine concentrations, including patients and those with serious co-morbid conditions. Patients with extremes in muscle mass or diet. The data above are obtained from the National Kidney Disease Education Program (NKDEP) which additionally recommends that when the eGFR is used in patients with extremes of body mass index for purposes of drug dosing, the eGFR should be multiplied by the estimated BMI. [facility] CHEM PANEL Calcium Lvl 7.1 mg/dL 8.5 - 10.5 03/19/2017 [facility] CHEM PANEL AGAP 9.3 meq/L 10.0 - 20.0 03/19/2017 [facility] CHEM PANEL CO2 25 meq/L 24 - 32 03/19/2017 [facility] CHEM PANEL Chloride Lvl 114 meq/L 95 - 109 03/19/2017 [facility] CHEM PANEL Potassium Lvl 4.3 meq/L 3.5 - 5.1 03/19/2017 [facility] CHEM PANEL Sodium Lvl 144 meq/L 135 - 145 03/19/2017 [facility] CHEM PANEL Creatinine Lvl 0.44 mg/dL 0.50 - 1.40 03/19/2017 [facility] HEMATOLOGY Monocytes # 1.0 K/CMM 0.0 - 0.8 03/19/2017 [facility] HEMATOLOGY Lymphocytes # 1.0 K/CMM 1.0 - 5.5 03/19/2017 [facility] HEMATOLOGY Segs-Bands # 17.8 K/CMM 1.5 - 8.1 03/19/2017 [facility] HEMATOLOGY Basophils 0.2 % 0.0 - 1.0 03/19/2017 [facility] HEMATOLOGY Lymphocytes 4.9 % 20.0 - 40.0 03/19/2017 [facility] HEMATOLOGY Monocytes 5.1 % 2.0 - 12.0 03/19/2017 [facility] HEMATOLOGY Segs 89.8 % 45.0 - 75.0 03/19/2017 [facility] HEMATOLOGY MPV 9.9 fL 7.4 - 10.4 03/19/2017 [facility] HEMATOLOGY Platelet 237 K/CMM 133 - 450 03/19/2017 [facility] HEMATOLOGY MCHC 32.9 g/dL 32.0 - 36.0 03/19/2017 [facility] HEMATOLOGY MCH 31.7 pg 27.0 - 31.0 03/19/2017 [facility] HEMATOLOGY RDW 14.1 % 11.5 - 14.5 03/19/2017 [facility] HEMATOLOGY MCV 96.3 fL 80.0 - 98.0 03/19/2017 [facility] HEMATOLOGY Hct 33.7 % 36.0 - 48.0 03/19/2017 [facility] HEMATOLOGY Hgb 11.1 g/dL 12.0 - 16.0 03/19/2017 [facility] HEMATOLOGY RBC 3.50 M/CMM 4.20 - 5.40 03/19/2017 [facility] HEMATOLOGY WBC 19.8 K/CMM 3.7 - 10.4 03/19/2017 [facility] PARATHYROID PROFILE Ca Ion WB 1.02 mMol/L 1.05 - 1.25 03/19/2017 [facility] PARATHYROID PROFILE Ca Norm WB 0.98 mMol/L 1.05 - 1.25 03/19/2017 [facility] CHEM PANEL Lactic Acid Lvl 2.1 mMol/L 0.5 - 2.2 03/19/2017 [facility] CHEM PANEL Lactic Acid Lvl 2.4 mMol/L 0.5 - 2.2 03/18/2017 [facility] DRUG SCREEN U Cannab Scr Negative *NA* (03/18/17 2:43 PM) Negative 03/18/2017 [facility] DRUG SCREEN U Cocaine Scr Negative *NA* (03/18/17 2:43 PM) Negative 03/18/2017 [facility] DRUG SCREEN U Benzodia Scr Negative *NA* (03/18/17 2:43 PM) Negative 03/18/2017 [facility] DRUG SCREEN U Phencyc Scr Negative *NA* (03/18/17 2:43 PM) Negative 03/18/2017 [facility] DRUG SCREEN U Opiate Scr Positive *ABN* (03/18/17 2:43 PM) Negative 03/18/2017 [facility] DRUG SCREEN U Propoxyph Scr Negative *NA* (03/18/17 2:43 PM) Negative 03/18/2017 [facility] DRUG SCREEN U Methadone Scr Negative *NA* (03/18/17 2:43 PM) Negative 03/18/2017 [facility] DRUG SCREEN UDS Note See Note (03/18/17 2:43 PM) 03/18/2017 [facility] DRUG SCREEN U Amph Scr Positive *ABN* (03/18/17 2:43 PM) Negative 03/18/2017 [facility] DRUG SCREEN U Ariela Scr Negative *NA* (03/18/17 2:43 PM) Negative 03/18/2017 [facility] URINE AND STOOL UA RBC 1 /HPF 0 - 2 03/18/2017 [facility] URINE AND STOOL UA Bacteria Occasional /HPF None Seen /HPF 03/18/2017 [facility] URINE AND STOOL UA Mucus Few /LPF None Seen /LPF 03/18/2017 [facility] URINE AND STOOL UA Urobilinogen <=1.0 mg/dL 0.1 - 1.0 03/18/2017 [facility] URINE AND STOOL UA Sq Epi Occasional /LPF Few /LPF 03/18/2017 [facility] URINE AND STOOL UA WBC 1 /HPF 0 - 5 03/18/2017 [facility] URINE AND STOOL UA Leuk Est Negative (03/18/17 2:43 PM) Negative 03/18/2017 [facility] URINE AND STOOL Micro? Not Indicated *NA* (03/18/17 2:43 PM) 03/18/2017 [facility] URINE AND STOOL UA Color Yellow *NA* (03/18/17 2:43 PM) Yellow 03/18/2017 [facility] URINE AND STOOL UA Spec Grav 1.006 <=1.030 03/18/2017 [facility] URINE AND STOOL UA pH 6.5 5.0 - 8.0 03/18/2017 [facility] URINE AND STOOL UA Turbidity Clear (03/18/17 2:43 PM) Clear 03/18/2017 [facility] URINE AND STOOL UA Protein Negative mg/dL Negative mg/dL 03/18/2017 [facility] URINE AND STOOL UA Glucose Negative mg/dL Negative mg/dL 03/18/2017 [facility] URINE AND STOOL UA Blood Negative (03/18/17 2:43 PM) Negative 03/18/2017 [facility] URINE AND STOOL UA Nitrite Negative (03/18/17 2:43 PM) Negative 03/18/2017 [facility] URINE AND STOOL UA Ketones Negative mg/dL Negative mg/dL 03/18/2017 [facility] URINE AND STOOL UA Bili Negative *NA* (03/18/17 2:43 PM) Negative 03/18/2017 [facility] HEMATOLOGY INR 1.00 0.85 - 1.17 03/18/2017 [facility] HEMATOLOGY PT 13.4 s 12.0 - 14.7 03/18/2017 [facility] HEMATOLOGY PTT 30.2 s 22.9 - 35.8 03/18/2017 [facility] HEMATOLOGY RBC Morph Normal (03/18/17 12:15 PM) 03/18/2017 [facility] HEMATOLOGY Plt Morph Normal (03/18/17 12:15 PM) 03/18/2017 [facility] IMMUNOLOGY Hep C Ab Positive *ABN* (03/18/17 12:15 PM) 03/18/2017 [facility] IMMUNOLOGY Hep Bs Ag Negative *NA* (03/18/17 12:15 PM) Negative 03/18/2017 [facility] IMMUNOLOGY Hep Bs Ab null <=7.4 mIU/mL 03/18/2017 [facility] IMMUNOLOGY Hep B Core Ab Negative *NA* (03/18/17 12:15 PM) Negative 03/18/2017 [facility] IMMUNOLOGY Hep A IgM Negative *NA* (03/18/17 12:15 PM) Negative 03/18/2017 [facility] Abdomen/Pelvis w IV contrast CT Abdomen/Pelvis w IV contrast CT EXAM: CT ABDOMEN AND PELVIS WITH CONTRAST DATE: 03/18/2017 11:40 AM CDT INDICATION: Chronic abdominal pain, dysphagia, weight loss ADDITIONAL INFORMATION: None. COMPARISON: None available. TECHNIQUE: Volumetric CT acquisition of the abdomen and pelvis after the intravenous administration contrast. Axial, coronal and sagittal reconstructions. Postcontrast phases: Venous and delayed. IV contrast: 80 mL Omnipaque Oral contrast: None. DLP: 1124 mGy-cm (including the chest) FINDINGS: Lines and tubes: None. Lower thorax: For findings above the diaphragm, please see dedicated report for chest imaging performed same day. Liver: Subcentimeter hypodensity seen in the right dome of the liver which is too small to fully characterize (series 7 image 10). Biliary tree: No intra- or extrahepatic biliary ductal dilation. Gallbladder: Decompressed. Pancreas: Normal. Spleen: Normal. Adrenals: Normal. Kidneys and ureters: Subcentimeter hypodensities are seen within the renal cortex bilaterally, and are too small to fully characterize. No enhancing mass lesion. No hydronephrosis. Bladder: Normal. Reproductive organs: No CT abnormality. Gastrointestinal tract: There is fullness of the gastroesophageal junction. The stomach is nondistended. No dilated loops of large or small bowel. Large colonic stool burden. Appendix: Normal. Peritoneum and retroperitoneum: No ascites or free air. No other fluid collection. Lymph nodes: Normal. Vasculature: Moderate aortoiliac atherosclerosis. Bones: No acute osseous abnormality. No suspicious lytic or blastic osseous lesions. Soft tissues: Normal. IMPRESSION: 1. Fullness at the gastroesophageal junction. Given stated history of dysphasia recommend evaluation with endoscopy. 2. Large colonic stool burden. 3. For findings above the diaphragm, please see dedicated report for CT chest performed same day. 03/18/2017 - - Read by: Sara Bowman MD Dictated Date/time: 03/19/17 10:17 Electronically Signed by: Sara Bowman MD 03/19/17 10:27 FINAL REPORT [facility] Chest Pulmonary Embolism CTA Chest Pulmonary Embolism CTA EXAM: CTA CHEST WITH CONTRAST DATE: 03/18/2017 11:42 AM CDT INDICATION: Chest pain COMPARISON: Chest radiograph dated 03/18/2017. TECHNIQUE: Volumetric CT acquisition of the chest, during pulmonary arterial phase, after intravenous contrast. Axial, sagittal, coronal, and oblique MIP reconstructions are created at the acquisition workstation. IV Contrast: 80 mL Omnipaque 350 DLP: 1124 mGy-cm FINDINGS: Lines and tubes: None. Lower neck: Thyroid gland is unremarkable. Heart and Mediastinum: Heart size is within normal limits. No pericardial effusion. There is plaque seen in the aortic arch, as well as the proximal left subclavian artery, with calcified plaque seen in this region. There is no pulmonary embolus. Pleura: No pleural effusion or pneumothorax. Lymph Nodes: There is no hilar, mediastinal, axillary or internal mammary lymphadenopathy. Lungs: Moderate centrilobular and paraseptal emphysema. Linear regions of scarring/atelectasis in the left upper lobe, lingula, left lower lobe. Mild diffuse tracheal and bronchial wall thickening is demonstrated. Numerous centrilobular nodular opacities, with a tree-in-bud appearance are demonstrated throughout the lower lobes, and caudal portions of the right middle lobe and lingula. Esophagus and Upper abdomen: Small amount of fluid seen in a nondilated esophagus. Please see separate report for details below the diaphragm. Bones and soft tissues: Unremarkable. IMPRESSION: 1. No acute pulmonary embolus. 2. Tracheobronchial wall thickening, suggesting tracheobronchitis. 3. Scattered nodules, with a tree-in-bud appearance, predominantly in the lower lungs, compatible with endobronchial spread of infection. 03/18/2017 - - Read by: Trenton Marin MD Dictated Date/time: 03/19/17 09:31 Electronically Signed by: Trenton Marin MD 03/20/17 01:59 FINAL REPORT [facility] CHEM PANEL Bili Total 0.3 mg/dL 0.2 - 1.3 03/18/2017 [facility] CHEM PANEL A/G Ratio 0.6 0.7 - 1.6 03/18/2017 [facility] CHEM PANEL Globulin 4.6 g/dL 2.7 - 4.2 03/18/2017 [facility] CHEM PANEL Albumin Lvl 2.8 g/dL 3.5 - 5.0 03/18/2017 [facility] CHEM PANEL Total Protein 7.4 g/dL 6.4 - 8.4 03/18/2017 [facility] CHEM PANEL Alk Phos 119 unit/L 39 - 136 03/18/2017 [facility] CHEM PANEL AST 20 unit/L 0 - 37 03/18/2017 [facility] CHEM PANEL ALT 18 unit/L 0 - 65 03/18/2017 [facility] CHEM PANEL Bili Indirect 0.3 mg/dL 0.0 - 1.0 03/18/2017 [facility] CHEM PANEL Bili Direct 0.0 mg/dL 0.0 - 0.3 03/18/2017 [facility] HEMATOLOGY Plt Morph Normal (03/18/17 8:30 AM) 03/18/2017 [facility] HEMATOLOGY RBC Morph Normal (03/18/17 8:30 AM) 03/18/2017 [facility] HEMATOLOGY Eosinophils 0.3 % 0.0 - 4.0 03/18/2017 [facility] HEMATOLOGY Eosinophils # 0.1 K/CMM 0.0 - 0.5 03/18/2017 [facility] Chest 1view DX Chest 1view DX EXAM: XR CHEST 1 VIEW DATE: 03/18/2017 7:35 AM CDT INDICATION: - sob COMPARISON: None TECHNIQUE: AP chest FINDINGS: Lines and tubes: None. Lungs and pleura: Hyper aeration of the lungs. Flattening of the diaphragms. Blunting of the bilateral costophrenic sulci may represent scarring versus small pleural effusions. An ill-defined nodular subcentimeter density is seen projecting over the left lung. No pneumothorax. Heart and mediastinum: The heart size is normal for technique. The mediastinal contours are normal. Bones: No acute bony abnormality is identified. IMPRESSION: 1. Emphysematous lung changes without acute cardiopulmonary process. 2. Blunted costophrenic sulci representing tiny pleural effusions versus scarring. 3. Subcentimeter nodular density projecting over the left midlung, may represent pulmonary nodule versus scarring. Recommend two-view chest x-ray for further evaluation or a nonemergent low-dose chest CT. 03/18/2017 - - Read by: Casa Osuna MD Dictated Date/time: 03/18/17 08:00 Electronically Signed by: Casa Osuna MD 03/18/17 08:03 FINAL REPORT [facility] Vital Signs Vital Sign Value Date Comments Source Systolic (mm Hg) 149 12/08/2017 [facility] Diastolic (mm Hg) 87 12/08/2017 [facility] Heart Rate 101 12/08/2017 [facility] Respitory Rate 18 12/07/2017 [facility] Systolic (mm Hg) 169 12/07/2017 [facility] Diastolic (mm Hg) 102 12/07/2017 [facility] Heart Rate 118 12/07/2017 [facility] Temperature Oral (F) 97.5 F 12/07/2017 [facility] Temperature Oral (F) 97.7 F 12/07/2017 [facility] Systolic (mm Hg) 155 12/07/2017 [facility] Diastolic (mm Hg) 96 12/07/2017 [facility] Heart Rate 109 12/07/2017 [facility] Respitory Rate 18 12/07/2017 [facility] Respitory Rate 18 12/07/2017 [facility] Temperature Oral (F) 98 F 12/07/2017 [facility] BMI Calculated 16.44 12/05/2017 [facility] Weight 40.773 12/05/2017 [facility] Height 157.48 cm 12/05/2017 [facility] Height 157.48 cm 12/04/2017 [facility] BMI Calculated 15.4 12/04/2017 [facility] Weight 38.182 12/04/2017 [facility] Systolic (mm Hg) 203 10/16/2017 [facility] Diastolic (mm Hg) 79 10/16/2017 [facility] Respitory Rate 19 10/16/2017 [facility] Systolic (mm Hg) 106 10/16/2017 [facility] Diastolic (mm Hg) 72 10/16/2017 [facility] Respitory Rate 13 10/16/2017 [facility] Heart Rate 85 10/16/2017 [facility] Temperature Oral (F) 98.1 F 10/16/2017 [facility] Systolic (mm Hg) 137 10/16/2017 [facility] Diastolic (mm Hg) 90 10/16/2017 [facility] Respitory Rate 16 10/16/2017 [facility] Temperature Oral (F) 98 F 10/16/2017 [facility] Heart Rate 95 10/16/2017 [facility] Temperature Oral (F) 98.5 F 10/16/2017 [facility] Heart Rate 82 10/16/2017 [facility] Height 157.48 cm 10/13/2017 [facility] BMI Calculated 15.95 10/13/2017 [facility] [facility] Weight 39.545 10/13/2017 [facility] BMI Calculated 14.66 05/16/2017 [facility] Weight 36.364 05/16/2017 [facility] Systolic (mm Hg) 98 05/16/2017 [facility] Diastolic (mm Hg) 74 05/16/2017 [facility] Heart Rate 72 05/16/2017 [facility] Respitory Rate 16 05/16/2017 [facility] Height 157.48 cm 05/16/2017 [facility] Systolic (mm Hg) 146 03/21/2017 [facility] Diastolic (mm Hg) 101 03/21/2017 [facility] Heart Rate 85 03/21/2017 [facility] Temperature Oral (F) 97.2 F 03/21/2017 [facility] Respitory Rate 18 03/21/2017 [facility] Temperature Oral (F) 98.3 F 03/21/2017 [facility] Systolic (mm Hg) 164 03/21/2017 [facility] Diastolic (mm Hg) 103 03/21/2017 [facility] Respitory Rate 20 03/21/2017 [facility] Heart Rate 92 03/21/2017 [facility] Temperature Oral (F) 97.3 F 03/21/2017 [facility] Systolic (mm Hg) 145 03/21/2017 [facility] Diastolic (mm Hg) 89 03/21/2017 [facility] Respitory Rate 18 03/21/2017 [facility] Heart Rate 82 03/21/2017 [facility] BMI Calculated 15.83 03/18/2017 [facility] Weight 39.261 03/18/2017 [facility] Height 157.48 cm 03/18/2017 [facility] BMI Calculated 15.66 03/18/2017 [facility] Weight 36.364 03/18/2017 [facility] Height 152.4 cm 03/18/2017 [facility] Weight 36.364 03/18/2017 [facility] Encounters Location Location Details Encounter Type Encounter Number Reason For Visit Attending Provider ADM Date DC Date Status Source [facility] Inpatient [id number] Rolando Hyman 03/18/2017 03/21/2017 [facility] Outpatient [id number] Manoj Rodriguez 05/16/2017 05/17/2017 [facility] Bed[facility] Outpatient [id number] Manoj Rodriguez 05/29/2017 05/29/2017 [facility] Outpatient [id number] DYLLAN SEGOVIA 09/26/2017 Active [facility] Inpatient [id number] Blanka Laguna 10/13/2017 10/16/2017 [facility] Outpatient [id number] DYLLAN SEGOVIA 11/06/2017 Active [facility] Inpatient [id number] Michael Huang Jr 12/04/2017 12/08/2017 [facility] Procedures Procedure Code Date Perfomer Comments Source Exploratory laparotomy [id number] [facility] ORIF - Open reduction and internal fixation of fracture<sup>1</sup> [id number] Left leg ; left knee [facility] Exploratory laparotomy [id number] [facility] ORIF - Open reduction and internal fixation of fracture<sup>1</sup> [id number] Left leg ; left knee [facility]
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
--- OUTSIDE RECORDS SUMMARY | 2018-10-03 06:51 | XMS REPORT | Summary of Care ---
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 with adapter) 2 inhalation INHALATION BID 12/05/17 busPIRone 15 mg PO TID 12/04/17 cefepime + Sodium Chloride 0.9% IV 100 mL 1 gm IVPB ABXQ8H 25 ml/hr 12/05/17 cloNIDine (cloNIDine 0.3 mg/24 hr transdermal film, extended release) 1 patch TOP Q7D 12/05/17 clonazePAM 0.5 mg PO BID 12/05/17 divalproex sodium (divalproex sodium 250 mg oral tablet, extended release (Depakote ER)) 500 mg PO BID 12/05/17 heparin 5,000 unit SUB-Q Q12H 12/08/17 metoprolol (metoprolol extended release) 25 mg PO Daily 12/05/17 pantoprazole 40 mg PO BID-Before Meals 12/04/17 vancomycin + Sodium Chloride 0.9% IV 250 mL 750 mg IV [id number] 250 ml/hr Unscheduled Meds: None PRN Meds (6): 12/05/17 acetaminophen-codeine (acetaminophen-codeine #4) 1 tab PO Q8H 12/05/17 acetaminophen-hydrocodone ([place] 5/325 oral tablet) 1 tab PO Q4H 12/05/17 albuterol-ipratropium (DuoNeb inhalation solution) 3 ml NEB RQ4H 12/05/17 cyclobenzaprine 10 mg PO Q12H 12/05/17 hydrALAZINE 10 mg IVP Q6H 12/04/17 sodium chloride (Saline Flush 0.9%) 10 mL IVP PRN One Time Meds: None Continuous Infusions (1): 12/05/17 Sodium Chloride 0.9% IV 1,000 mL (normal saline 0.9% IV 1,000 mL) 1,000 mL 100 ml/hr Assessment & Plan: BPD with exacerbation History of coronary artery disease History of sepsis History of hypertension Weakness and deconditioned state Bipolar disorder Pulmonary hypertension History of current smoking AntibioticsPatient overall condition continues to improve slowly. Patient has been counseled to quit smoking. Will continue current treatment with and breathing treatments. I will place her on low-dose prednisone and continue supportive care. Will discontinue the IV fluids Extracted from: Title: Clinical Document Author: Michael Bill Date: 12/05/17 MD [place]
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
[2018-10-03 08:35] VITALS: BP 130/83
== END | disposition home or self-care (01) ==
LOC: OR 06:46
PROVIDERS: ATTEND Internal Medicine Gastroenterology
DX: K21.0 Gastro-esophageal reflux disease with esophagitis (principal); K29.70 Gastritis, unspecified, without bleeding; K29.80 Duodenitis without bleeding; R10.13 Epigastric pain; R11.2 Nausea with vomiting, unspecified; Z87.11 Personal history of peptic ulcer disease; R63.4 Abnormal weight loss; Z68.1 Body mass index [BMI] 19.9 or less, adult; I10 Essential (primary) hypertension; F17.210 Nicotine dependence, cigarettes, uncomplicated; R68.81 Early satiety; J44.9 Chronic obstructive pulmonary disease, unspecified; Z01.810 Encounter for preprocedural cardiovascular examination; Z01.812 Encounter for preprocedural laboratory examination
CPT/HCPCS: 36415; 43239; 85025; 88305; 88312; 93005; J2001; J2250; J2704